=== PATIENT | female | born 1980 | race Caucasian/White ===

== ENCOUNTER 2019-02-20 22:50 | Emergency (ER) | payer OTHER ==
[2019-02-20 22:55] VITALS: BP 112/74; PULSE 68; TEMP 97.8; BMI 26.6
--- NOTE | 2019-02-21 00:24 | PDOC ---
History of Present Illness - General Chief Complaint: Pain Stated Complaint: PAIN Time Seen by Provider: 02/20/19 23:41 - History of Present Illness Initial Comments: 02/21/19 00:21 38F coming in with abdominal pain upon waking up from d&c procedure at 5pm. The apin was in the lower abdomen, without discharge. She say the pain is now completely resolved and feels completely back to normal. Patient eloped before complete examination could be performed. Past History - Past Medical History Allergies/Adverse Reactions: Allergies Allergy/AdvReac Type Severity Reaction Status Date / Time shellfish derived Allergy Intermediate Rash Verified 02/20/19 23:05 Home Medications: Ambulatory Orders No Home Medications 0 dose .ROUTE UTDICT 03/02/13 COPD: No HTN: Yes Psychiatric Problems: Yes (anxiety) - Reproductive History Is Patient Now?: No - Immunization History Immunization Up to Date: No - Psycho Social/Smoking Cessation Hx Smoking History: Never smoked Have you smoked in the past 12 months: Yes Number of Cigarettes Smoked Daily: 4 Hx Alcohol Use: No Review of Systems - Review of Systems Able to Perform ROS?: Yes Is the patient limited Montenegrin proficient: No Constitutional: No: Symptoms Reported HEENTM: No: Symptoms Reported Respiratory: No: Symptoms reported Cardiac (ROS): No: Symptoms Reported ABD/GI: No: Symptoms Reported : No: Symptoms Reported, Testicular Mass Integumentary: No: Symptoms Reported Neurological: No: Symptoms reported All Other Systems: Reviewed and Negative *Physical Exam - Vital Signs Last Vital Signs Temp Pulse Resp BP Pulse Ox 97.8 F 68 19 112/74 100 02/20/19 22:52 02/20/19 22:52 02/20/19 22:52 02/20/19 22:52 02/20/19 22:52 Medical Decision Making - Medical Decision Making 02/21/19 00:24 38F coming in with abdominal pain upon waking up from d&c procedure at 5pm. The apin was in the lower abdomen, without discharge. She say the pain is now completely resolved and feels completely back to normal. Patient eloped before complete examination could be performed. Discharge - Discharge Information Problems reviewed: Yes Clinical Impression/Diagnosis: Eloped from emergency department Disposition: ELOPED - Follow up/Referral - Patient Discharge Instructions - Post Discharge Activity
--- NOTE | 2019-02-21 00:24 | PDOC ---
Attending Attestation - Resident Resident Name: Ivan Day - ED Attending Attestation I have performed the following: I have examined & evaluated the patient, The case was reviewed & discussed with the resident, I agree w/resident's findings & plan, Exceptions are as noted - HPI HPI: 02/21/19 01:26 Ms. Gtz is a 38 yo F who presents to the emergency department with a complaint of abdominal pain Patient is status post D&C this afternoon Patient was seen by the resident only He apparently saw her left the room and was planning to return to the room to examine the patient When he returned to the room, the patient had already left I have not independently interviewed or examined this patient - Physicial Exam PE: 02/21/19 01:29 Physical examination could not be performed as patient has left the emergency department - Medical Decision Making 02/21/19 01:29 Patient presented to the ER with a complaint of abdominal pain, status post D&C earlier today Patient did not stay for complete evaluation in the emergency department and has eloped
== END 2019-02-21 00:21 | disposition left against medical advice (07) ==
LOC: JER 22:50
DX: R10.9 Unspecified abdominal pain (principal)
CPT/HCPCS: 99282-25

== ENCOUNTER 2020-01-03 10:10 | Inpatient (IN) | payer OTHER ==
[2020-01-03] MEDS ORDERED: OXYTOCIN 30 UNITS in 0.9% NS 30 UNIT/500 ML INFUS.BAG IVPB SCH (10:45)
--- NOTE | 2020-01-03 10:50 | HP ---
"Past Medical History - Admission History of Present Illness: 39 yo @ 38 1/7 wks by first trimester ultrasound, EDC 01/16/2020 complicated by: 1. cHTN - was on Bystolic, stopped, no meds early 24 H urine protein BPs wnl this 2. GDMA2 on NPH 20u Last EFW: AGA 3225g 68% 3. Obesity - 28 lb wt gain this early GCT 139 --> GTT 90 | 163 | 186* | 85 routine GTT 94 | 181* | 195* | 85 4. IVF 5. AMA - [id number] neg, 46 XY 6. Alpha Thal carrier, FOB not a carrier 7. GBS neg 8. Fibroid uterus Patient reports leakage of clear fluid ~ 0600 this AM. She reports movement denies contractions of bleeding. History Source: Patient Limitations to Obtaining History: No Limitations - Past Medical History Cardiovascular: Yes: HTN ...: 1 ...Para: 0 Heme/Onc: No: Anemia - Past Surgical History Past Surgical History: Yes: Cholecystectomy Hx Myomectomy: No Hx Transabdominal Cerclage: No Additional Surgical History: 02/18/2008 - L salpingoophorectomy for dermoid. 2018 IVF - Smoking History Smoking history: Never smoked Have you smoked in the past 12 months: Yes Aproximately how many cigarettes per day: 4 - Alcohol/Substance Use Hx Alcohol Use: No - Social History History of Recent Travel: No Home Medications - Allergies Allergies/Adverse Reactions: Allergies Allergy/AdvReac Type Severity Reaction Status Date / Time shellfish derived Allergy Intermediate Rash Verified 01/03/20 11:46 No Known Drug Allergies Allergy Verified 01/03/20 11:46 - Home Medications Home Medications: Ambulatory Orders Pnv No.95/Ferrous Fum/Folic AC [ Formula] 1 each PO DAILY 12/16/19 Aspirin [Adult Aspirin Regimen] 81 mg PO DAILY 01/03/20 Insulin Detemir [Levemir Flextouch] 20 unit [facility] 01/03/20 Family Medical History Family History: Denies Review of Systems - Review of Systems Constitutional: reports: No Symptoms Neck: reports: No Symptoms Cardiovascular: reports: No Symptoms Respiratory: reports: No Symptoms Gastrointestinal: reports: No Symptoms Musculoskeletal: reports: No Symptoms Endocrine: reports: No Symptoms Hematology/Lymphatic: reports: No Symptoms Physical Exam - Maternity Constitutional: Yes: Well Nourished, No Distress, Calm Cardiovascular: Yes: Regular Rate and Rhythm Lungs: Clear to auscultation - Abdominal Exam/OB Number of Fetuses: Single Presentation: Vertex Contractions: No Category: I - Labs Lab Results: PNL: B positive, antibody neg; RPR NR; HIV neg; HBs Ag neg; HCV neg; GBS neg Hemorrhage Risk Assessment - Risk Factors Medium Risk Factors: Yes: None High Risk Factors: Yes: None Risk Score: 1 (patient on ASA 81) Risk Level: Medium Risk Assessment/Plan: Hx/o ASA use for PEC prevention, will T&C 2 uPRBCs Assessment/Plan 39 yo @ 38 wks PROM 1. Admit to L&D 2. Routine labs ordered Covid test ordered 3. GBS neg 4. Plan for augmentation with pitocin 5. Will offer pain medication upon patient request 6. Will proceed with expectant management"
--- NOTE | 2020-01-03 11:22 | PN ---
Progress Note (short form) - Note Progress Note: First baby. PROM. Dr. Hill is considering Pitocin. Patient examined. Cervix is closed, effaced 50%. Vertex -1. heart category 1.
[2020-01-03 11:39] VITALS: BMI 32.8
[2020-01-03] MEDS: ELECTROLYTE-148 SOLN 1,000 ML IV SCH ×2 (11:40→16:00)
[2020-01-03 12:34] LABS: BASO % 0.5 % (0-2.0); EOS % 0.4 % (0-4.5); HEMATOCRIT 34.8 % (32.4-45.2); HEMOGLOBIN 11.2 GM/dL (10.7-15.3); LYMPH % 12.1 % (8-40); MCH 26.3 pg (25.7-33.7); MCHC 32.2 g/dl (32.0-36.0); MEAN CELL VOLUME 81.8 fl (80-96); MEAN PLT VOLUME 9.5 fl (7.5-11.1); MONO % 4.3 % (3.8-10.2); NEUT % 82.7 % (42.8-82.8); PLATELET COUNT 372 K/MM3 (134-434); RBC 4.25 M/mm3 (3.60-5.2); RDW 14.2 % (11.6-15.6); WHITE BLOOD COUNT 15.6 K/mm3 (4.0-10.0)
[2020-01-03 12:41] LABS: INR 0.94 (0.83-1.09); PROTHROMBIN TIME (PATIENT) 11.1 SEC (9.7-13.0)
[2020-01-03 12:44] LABS: ACTIVATED PTT 26.3 SECONDS (25.2-36.5)
[2020-01-03] MEDS ORDERED: BUTORPHANOL TARTRATE 1 MG/ML VIAL IVPUSH ONE (12:49)
[2020-01-03] MEDS ORDERED: PROMETHAZINE HCL 25 MG/1 ML VIAL IVPB ONE (12:49)
[2020-01-03 12:58] LABS: BLOOD UREA NITROGEN 6.6 mg/dL (7-18); CREATININE 0.7 mg/dL (0.55-1.3); POTASSIUM 4.3 mmol/L (3.5-5.1)
[2020-01-03] MEDS ORDERED: PROMETHAZINE HCL 25 MG/1 ML VIAL ONE (13:04)
[2020-01-03] MEDS ORDERED: BUTORPHANOL TARTRATE 2 MG/ML VIAL ONE (13:04)
[2020-01-03] MEDS ORDERED: PCA PUMP NR ONE ×2 (14:32→19:24)
[2020-01-03] MEDS ORDERED: FENTANYL/BUPIVACAINE/NS/PF - PCEA - 50 ML DISP.SYRIN EP ONE ×3 (14:32→22:02)
[2020-01-03] MEDS: FENTANYL/BUPIVACAINE/NS/PF - PCEA - 50 ML DISP.SYRIN EP SCH (15:50)
[2020-01-03] MEDS ORDERED: NALOXONE HCL 0.4 MG/ML VIAL IVPUSH PRN (17:01)
[2020-01-03] MEDS ORDERED: DEXTROSE 5%-LACTATED RINGERS 1,000 ML IV SCH (17:15)
[2020-01-03] MEDS ORDERED: BUPIVACAINE HCL/PF 0.25% (2.5MG/ML) 10 ML VIAL ONE ×2 (17:16→23:05)
--- NOTE | 2020-01-03 17:31 | PN ---
Progress Note, Labor Vaginal Exam #1 Labor Exam Date: 01/03/20 Labor Exam Time: 17:29 Heart Rate (range): 140 Dilatation: 2 Effacement (%): 100 Amniotic Membrane Status: Ruptured Presentation: Vertex/Position Station: -1 Remarks: 39 yo @ 38 wks PROM, induction of labor 1. currently on pitocin @ 4, cervix has started to thin and change noted Will continue pitocin per protocol 2. GBS neg 3. GDM on insulin - will continue to monitor FS Q4, will cover if needed 4. Pain well controlled with epidural 5. Will proceed with expectant management Vaginal Exam #2 Labor Exam Date: 01/04/20 Labor Exam Time: 00:26 Heart Rate (range): 180 Dilatation: 8 Effacement (%): 100 Amniotic Membrane Status: Ruptured Presentation: Vertex/Position Station: -1 Remarks: 39 yo @ 38+ wks, IOL PROM, active labor 1. Good cervical change, pitocin currently at 2 2. Category II FHT - tachycardia, good variability and accelerations noted Will change in maternal position and give O2 via facemask Currently afebrile, will monitor for signs of infection 3. s/p epidural bolus with good pain relief 4. FS currently 98, no coverage needed at this time 5. Will continue with expectant management Vaginal Exam #3 Labor Exam Date: 01/04/20 Labor Exam Time: 04:00 Heart Rate (range): 130 Dilatation: 10 Effacement (%): 100 Presentation: Vertex/Position Remarks: Patient pushing Fetus Category I FHT Will continue expectant management
[2020-01-03] MEDS ORDERED: ONDANSETRON 4 MG/2 ML VIAL ONE ×2 (20:01→23:09)
[2020-01-03] MEDS ORDERED: ONDANSETRON 4 MG/2 ML VIAL IVPB ONE ×2 (21:15→23:27)
[2020-01-03] MEDS ORDERED: LIDO 2%/EPI 1:200000 PRESRVFRE (20 ML SDVIAL) ONE (23:11)
[2020-01-03] MEDS ORDERED: ACETAMINOPHEN 1000 MG/100 ML VIAL (NON FORMULARY) IVPB ONE (23:26)
[2020-01-03] MEDS ORDERED: ACETAMINOPHEN INJECTION 100 ML IVPB ONE (23:43)
[2020-01-03] MEDS ORDERED: AMPICILLIN SODIUM 2 GM VIAL ONE (23:44)
[2020-01-04] MEDS ORDERED: AMPICILLIN - 2 GM in SODIUM CHLORIDE 100 ML IVPB ONE (00:31)
[2020-01-04] MEDS ORDERED: FENTANYL/BUPIVACAINE/NS/PF - PCEA - 50 ML DISP.SYRIN EP ONE (01:34)
[2020-01-04] MEDS ORDERED: LIDOCAINE HCL 1% PRESERVATIVE FREE - 30ML VIAL ONE (02:38)
[2020-01-04] MEDS ORDERED: OXYTOCIN 20 UNITS in 0.9% NS 20 UNIT/1,000 ML INFUS.BAG IV ONE (02:39)
[2020-01-04] MEDS: AMPICILLIN - 1 GM in SODIUM CHLORIDE 100 ML IVPB SCH (04:00)
[2020-01-04] MEDS ORDERED: LIDO 2%/EPI 1:200000 PRESRVFRE (20 ML SDVIAL) ONE (06:34)
[2020-01-04] MEDS ORDERED: CITRIC ACID/SODIUM CITRATE 30 ML UNIT-DOSE CUP PO ONE (06:37)
--- NOTE | 2020-01-04 06:37 | PN ---
Progress Note (short form) - Note Progress Note: Patient progressed to FD and pushing for approximately 3.5 hours with poor descent of head. Patient agrees to primary delivery. Discussed risks including but not limited to infection, bleeding requiring transfusion and damage to surrounding organs such as the bowel or bladder. Discussed risk of injury to infant. Discussed risk of wound infection and separation. Discussed need for planning of future children and possibility of abnormal placentation. All questions answered. Patient expressed understanding. Nursing staff noted, Anesthesia and Neonatology notified. Will proceed to OR
--- NOTE | 2020-01-04 08:33 | PN ---
Progress Note (short form) - Note Progress Note: I assisted Dr. Womack at c/section for the entirety of the case.
[2020-01-04 08:40] LABS: CORD BASE EXCESS -4.8 mmol/L (0-2); CORD HCO3 21.5 mmHg (20-29); CORD PCO2 44.3 mmHg (30-78); CORD pH 7.304 (7.14-7.44)
[2020-01-04 08:44] LABS: CORD HCO3 21.1 mmHg (20-29); CORD PCO2 52.5 mmHg (30-78); CORD pH 7.223 (7.14-7.44)
[2020-01-04] MEDS ORDERED: WITCH HAZEL 50% (TUCKS) 40 PAD/JAR PAD TP PRN (08:49)
[2020-01-04] MEDS ORDERED: oxyCODONE HCL 5 MG TABLET PO PRN (08:49)
[2020-01-04] MEDS ORDERED: SENNOSIDES/DOCUSATE COMBO (SENNA PLUS) TABLET (UD) PO PRN (08:49)
[2020-01-04] MEDS ORDERED: BENZOCAINE 20% 57 GM BOTTLE TP PRN (08:49)
[2020-01-04] MEDS ORDERED: METHYLERGONOVINE MALEATE 0.2 MG/1 ML AMP IM PRN (08:49)
[2020-01-04] MEDS ORDERED: BENZOCAINE 28 GM HEMORRHOIDAL OINTMENT TP PRN (08:49)
--- NOTE | 2020-01-04 08:58 | PN ---
"Delivery - Delivery Section: Primary Type of Anesthesia: Epidural Episiotomy/Laceration: None EBL (cc): 800 Delivery, Single - Stages of Labor Date 1st Stage Initiatied: 01/03/20 Time 1st Stage Initiated: 14:00 Date 2nd Stage Initiated: 01/04/20 Time 2nd Stage Initiated: 03:00 Date of Delivery: 01/04/20 Time of Delivery: 07:43 Time Placenta Delivered: 07:44 - Condition of Infant Ambulatory Services Representative/Public Health Nurse Present: Yes Name: Gurmeet Portillo Gender: Male Weight: 7 lb 10 oz Position: OP Total Hours ROM (Hrs/Mins): 25hrs/44mins - 1 Minute Total Score: 7 5 Minutes Total Score: 9 - Feeding Plan Initial Plan: Exclusive throughout hospitalization Remarks - Remarks Remarks: Surgeon: Dr. Hill | Assist: Dr. Maria | Anesthesia: Dr. Bourne Fluids: 500cc | UOP: 400cc | EBL: 800cc Findings: male infant, direct OP position, 7, 9 ; wt 7-10; normal apperaing right ovary and fallopian tube, absent L ovary and fallopian tube; multiple subserosal fibroids dictation: [id number]"
[2020-01-04] MEDS: OXYTOCIN 20 UNITS in 0.9% NS 20 UNIT/1,000 ML INFUS.BAG IV SCH (09:00)
[2020-01-04] MEDS ORDERED: ACETAMINOPHEN INJECTION 100 ML IVPB ONE (09:43)
[2020-01-04] MEDS ORDERED: ACETAMINOPHEN 1000 MG/100 ML VIAL (NON FORMULARY) IVPB ONE (09:44)
[2020-01-04] MEDS ORDERED: ONDANSETRON 4 MG/2 ML VIAL IVPUSH PRN (09:45)
[2020-01-04] MEDS: FERROUS SO4 325 MG TABLET (FP) PO SCH ×2 (10:12→23:04)
[2020-01-04] MEDS: PRENATAL VITAMINS W/ FOLIC ACID TABLET (FP) PO SCH (10:13)
[2020-01-04] MEDS: SIMETHICONE 80 MG TAB.CHEW (FP) PO PRN (23:04)
[2020-01-04] MEDS: IBUPROFEN 600 MG TABLET (FP) PO PRN (23:10)
[2020-01-04] MEDS ORDERED: diphenhydrAMINE HCL 25 MG CAPSULE (FP) PO PRN (23:34)
[2020-01-04] MEDS: ACETAMINOPHEN 325 MG TABLET (FP) PO PRN (23:58)
[2020-01-05] MEDS: IBUPROFEN 600 MG TABLET (FP) PO PRN ×3 (07:35→19:55)
[2020-01-05] MEDS: ACETAMINOPHEN 325 MG TABLET (FP) PO PRN (07:35)
[2020-01-05] MEDS ORDERED: BISACODYL 10 MG SUPP.RECT RC PRN (08:49)
--- NOTE | 2020-01-05 08:50 | PN ---
Post Progress Note - Subjective Subjective: Patient without acute complaints. Temperature elevation last night, no chills No additional temperature elevations Tolerating clears, without complaints of nausea or vomiting. No ambulation yet. without difficulty Pain well controlled Garcia removed this AM, voiding Denies flatus. Type of Delivery: Primary C/S Vital Signs: Vital Signs Temperature 98.2 F 01/05/20 06:09 Pulse Rate 91 H 01/05/20 06:09 Respiratory Rate 20 01/05/20 07:00 Blood Pressure 110/79 01/05/20 06:09 O2 Sat by Pulse Oximetry (%) 98 01/04/20 21:16 Breast Exam: Yes: Soft Uterus: Yes: Fundus Firm, Fundus below umbilicus Incision: Yes: Dressing dry and intact Abdomen/GI: Yes: Abdomen soft, Tender (incisional), Tolerating PO. No: Abdominal Distention Extremities: Yes: Calves non-tender, Edema (trace) - Labs Labs: CBC WBC 15.6 K/mm3 (4.0-10.0) H 01/03/20 11:52 RBC 4.25 M/mm3 (3.60-5.2) 01/03/20 11:52 Hgb 11.2 GM/dL (10.7-15.3) 01/03/20 11:52 Hct 34.8 % (32.4-45.2) D 01/03/20 11:52 MCV 81.8 fl (80-96) 01/03/20 11:52 MCH 26.3 pg (25.7-33.7) 01/03/20 11:52 MCHC 32.2 g/dl (32.0-36.0) 01/03/20 11:52 RDW 14.2 % (11.6-15.6) 01/03/20 11:52 Plt Count 372 K/MM3 (134-434) 01/03/20 11:52 MPV 9.5 fl (7.5-11.1) 01/03/20 11:52 Absolute Neuts (auto) 12.9 K/mm3 (1.5-8.0) H 01/03/20 11:52 Neutrophils % 82.7 % (42.8-82.8) 01/03/20 11:52 Lymphocytes % 12.1 % (8-40) 01/03/20 11:52 Monocytes % 4.3 % (3.8-10.2) 01/03/20 11:52 Eosinophils % 0.4 % (0-4.5) 01/03/20 11:52 Basophils % 0.5 % (0-2.0) 01/03/20 11:52 Nucleated RBC % 0 % (0-0) 01/03/20 11:52 Assessment/Plan 39 yo POD # 1 s/p primary CD, T elevation last night now afebrile, vital signs stable, doing well 1. Continue routine postoperative care. Will monitor for signs of endometritis 2. Follow up AM CBC 3. Rh positive status, no rhogam indicated. 4. Encourage ambulation and incentive spirometer use 5. Continue oral pain medication 6. Anticipate discharge home postoperative day #3 or #4
--- NOTE | 2020-01-05 09:15 | PN ---
Progress Note (short form) - Note Progress Note: Anesthesia/pain Pt seen and examined S:Alert and awake comfortable O; Vital Signs Temperature 98.2 F 01/05/20 06:09 Pulse Rate 91 H 01/05/20 06:09 Respiratory Rate 01/05/20 07:00 Blood Pressure 110/79 01/05/20 06:09 O2 Sat by Pulse Oximetry (%) 98 01/04/20 21:16 CBC, BMP 01/03/20 11:52 01/03/20 11:52 A/P:s/p c section Doing well post op Continue current care Shawn Grimaldo MD
[2020-01-05 10:02] LABS: BASO % 0.4 % (0-2.0); EOS % 0.1 % (0-4.5); HEMATOCRIT 29.9 % (32.4-45.2); HEMOGLOBIN 9.8 GM/dL (10.7-15.3); LYMPH % 3.4 % (8-40); MCH 26.8 pg (25.7-33.7); MCHC 32.8 g/dl (32.0-36.0); MEAN CELL VOLUME 81.6 fl (80-96); MEAN PLT VOLUME 9.7 fl (7.5-11.1); MONO % 3.6 % (3.8-10.2); NEUT % 92.5 % (42.8-82.8); PLATELET COUNT 342 K/MM3 (134-434); RBC 3.67 M/mm3 (3.60-5.2); RDW 14.6 % (11.6-15.6); WHITE BLOOD COUNT 21.8 K/mm3 (4.0-10.0)
--- NOTE | 2020-01-05 10:36 | OP ---
DATE OF OPERATION: 01/04/2020 PREOPERATIVE DIAGNOSIS: Intrauterine at 38 weeks, induction of labor for premature rupture of membranes, direct occiput posterior position, failure to progress, gestational diabetic and chronic hypertension. SURGEON: Ricarda Hill MD INDICATIONS: Patient is a 39-year-old 1, para 0 who is admitted for premature rupture of membranes. She was given Pitocin, progressed to fully dilated. After pushing for approximately 3-1/2 hours with poor descent of head she opted for delivery. Risks, benefits, alternatives and complications were discussed including infection, bleeding, damage to surrounding organs and injury to . She expressed understanding and was brought to the operating room. PROCEDURE: When anesthesia was found to be adequate patient was prepped and draped in normal sterile fashion, placed in the dorsal supine position with leftward tilt. Approximately 11 cm skin incision was made with a knife and carried down to the underlying rectus fascia using Bovie electrocautery. Fascia was nicked in the midline, extended laterally using Kim scissors. Rectus muscles were in the midline. Peritoneum was entered sharply, extended superior and inferior using Metzenbaum scissors. Examination of the uterine cavity revealed a subserosal fibroid in the anterior lower uterine segment. The vesicouterine peritoneum was entered below the fibroid and extended laterally using Metzenbaum scissors. The uterine incision was made with a knife and extended laterally using the bandage scissors. was found to be deep in the pelvis, direct OP position, brought to the hysterotomy site and delivered followed by shoulders and body. Cord was clamped and cut. Cord blood with cord gases was collected and sent. Infant was handed to waiting NICU staff. The placenta was manually extracted. The uterus was cleared of all clot and debris. An examination of hysterotomy revealed a right hysterotomy extension down towards the vagina which was repaired using 0 Biosyn in running fashion. The hysterotomy was then repaired with 0 Biosyn in a running fashion with second layer as imbricated layer. The gutters were cleared of all clot and debris. Examination of the adnexa revealed a normal-appearing right fallopian tube and ovary and absent left fallopian tube and ovary. Copious irrigation was performed and the uterus was returned to the abdominal cavity. Examination of the hysterotomy site was found to be hemostatic and a piece of Surgicel was placed on the right aspect of the incision. The peritoneum was closed using 2-0 Biosyn in a running fashion. The muscle was reapproximated using 0 Biosyn in interrupted fashion. Fascia was closed using 0 Vicryl in a running fashion. Subcutaneous fat was closed using 2-0 Biosyn in a running fashion. The skin was reapproximated using 3-0 Vicryl. Patient tolerated the procedure well. Estimated blood loss was 800 mL. Patient was brought to recovery room in stable condition. David [id number] MTDD
[2020-01-05] MEDS: FERROUS SO4 325 MG TABLET (FP) PO SCH ×2 (10:44→21:03)
[2020-01-05] MEDS: PRENATAL VITAMINS W/ FOLIC ACID TABLET (FP) PO SCH (10:44)
[2020-01-05 12:16] LABS: ANISOCYTOSIS 1+; MACROCYTOSIS 0; PLATELET ESTIMATE NORMAL
[2020-01-05] MEDS: oxyCODONE HCL 5 MG TABLET PO PRN ×2 (14:17→19:55)
[2020-01-05] MEDS: SIMETHICONE 80 MG TAB.CHEW (FP) PO PRN (19:55)
[2020-01-06] MEDS: oxyCODONE HCL 5 MG TABLET PO PRN ×3 (01:50→19:51)
[2020-01-06] MEDS: SIMETHICONE 80 MG TAB.CHEW (FP) PO PRN ×4 (01:50→17:17)
[2020-01-06] MEDS: IBUPROFEN 600 MG TABLET (FP) PO PRN ×4 (01:51→17:17)
[2020-01-06] MEDS: ACETAMINOPHEN 325 MG TABLET (FP) PO PRN ×2 (06:23→17:17)
--- NOTE | 2020-01-06 07:41 | PN ---
Progress Note (short form) - Note Progress Note: pod2 no c/o, ambulating , passing gas , no excess vaginal bleeding CBC, BMP 01/05/20 09:03 01/03/20 11:52 Last Vital Signs Temp Pulse Resp BP Pulse Ox 98.8 F 105 H 18 145/75 99 01/05/20 22:00 01/05/20 22:00 01/05/20 22:00 01/05/20 22:00 01/05/20 22:00 abdomen soft, no distension , no cva , BS are present, uterus firm incision dry, clean no calf tenderness plan ambulate , advance diet cbc in am
[2020-01-06] MEDS: OXYTOCIN 20 UNITS in 0.9% NS 20 UNIT/1,000 ML INFUS.BAG IV SCH (09:31)
[2020-01-06] MEDS: PRENATAL VITAMINS W/ FOLIC ACID TABLET (FP) PO SCH (09:34)
[2020-01-06] MEDS: FERROUS SO4 325 MG TABLET (FP) PO SCH ×2 (09:34→21:59)
--- NOTE | 2020-01-06 19:41 | DS ---
Physical Exam-DIRECTOR PROSPECT Vital Signs: Vital Signs Temperature 98.7 F 01/06/20 10:00 Pulse Rate 90 01/06/20 10:00 Respiratory Rate 18 01/06/20 10:00 Blood Pressure 130/84 01/06/20 10:00 O2 Sat by Pulse Oximetry (%) 99 01/05/20 22:00 Constitutional: Yes: Well Nourished, No Distress, Calm Eyes: Yes: WNL, Conjunctiva Clear, EOM Intact HENT: Yes: WNL, Atraumatic, Normocephalic Neck: Yes: WNL, Supple, Trachea Midline Cardiovascular: Yes: WNL, Regular Rate and Rhythm Respiratory: Yes: WNL, Regular, CTA Bilaterally Gastrointestinal: Yes: WNL, Normal Bowel Sounds, Soft ...Rectal Exam: Yes: Deferred Renal/: Yes: WNL Internal Exam Deferred: Yes ....Post : Yes: Uterus firm, Uterus non-tender, Slight lochia rubra Breast(s): Yes: WNL Musculoskeletal: Yes: WNL Extremities: Yes: WNL Edema: Yes Edema: LLE: 1+, RLE: 1+ Integumentary: Yes: WNL Wound/Incision: Yes: Clean/Dry, Well Approximated, Sutures Intact, Open to air Neurological: Yes: WNL, Alert, Oriented ...Motor Strength: WNL Psychiatric: Yes: WNL, Alert, Oriented Labs: CBC, BMP 01/05/20 09:03 01/03/20 11:52 Delivery - Delivery Section: Primary, Low Flap Transverse Type of Anesthesia: Epidural Episiotomy/Laceration: None EBL (cc): 800 Delivery, Single - Stages of Labor Date 1st Stage Initiatied: 01/03/20 Time 1st Stage Initiated: 14:00 Date 2nd Stage Initiated: 01/04/20 Time 2nd Stage Initiated: 03:00 Date of Delivery: 01/04/20 Time of Delivery: 07:43 Time Placenta Delivered: 07:44 Placenta: Yes: Expressed, Manual Removal, Normal Configuration - Condition of Activities Director Scouting/Senior Quantity Surveyor Present: Yes Name: Gurmeet Portillo Gender: Male Weight: 3.459 kg Position: OP Total Hours ROM (Hrs/Mins): 25hrs/44mins - 1 Minute Total Score: 7 5 Minutes Total Score: 9 - [place] Feeding Plan Initial Plan: Exclusive throughout hospitalization Benefits of Exclusively reinforced: Yes Discharge Summary Problems reviewed: Yes Reason For Visit: spontaneous rupture of membranes, early labor Arrest of descent, PROM, GDM, chronic HTN, fibroid uterus Procedures: Principal: Primary LT C/S Hospital Course: Normal postop course, normal recovery Health Concerns: chronic HTN, GDM, fibroid uterus, anemia Plan of Treatment: Postop recovery, ambulation, pain management, breast feeding Goals: Postop recovery, ambulation, pain management, breast feeding, continue vitamins Condition: Good - Instructions Diet, Activity, Other Instructions: Physical activity Resume your normal everyday activity as tolerated no heavy lifting or exercise until seen by your surgeon. You may walk unlimited mary of and climb stairs. You may resume driving the car when you feel safe and comfortable behind the wheel. No sexual activity as instructed. Wound care If you have a bandage, leave it on, and keep dry for 48-72 hours. After that time discard the outer bandage. If they are tapes on the skin under the out of bandage leave them in place. They will peel off in the next 7 to 10 days. Do Not Peel them off. You may shower the day after surgery. If there are tapes present on the skin, you may shower over them. Diet There are no dietary restrictions. Eat healthy, high-fiber foods. Drink 6 to 8 glasses of liquid each day. This will assist in keeping your bowels are regular. Pain management You may take Tylenol or acetaminophen or Ibuprofen (for example, Motrin, Advil etc.) from my pain prescription medication is ordered should be taken as pre scribed for moderate to severe pain. Call MD for any of the following: Severe pain not relieved by medication Fever of 101 or higher Excessive bleeding or drainage on dressing Inability to urinate Referrals: Devante Vera MD [Staff Physician] - Disposition: HOME - Home Medications Comprehensive Discharge Medication List: Ambulatory Orders Pnv No.95/Ferrous Fum/Folic AC [ Formula] 1 each PO DAILY 12/16/19 Aspirin [Adult Aspirin Regimen] 81 mg PO DAILY 01/03/20 Insulin Detemir [Levemir Flextouch] 20 unit [facility] 01/03/20 Prescription Drug Monitoring Program (I-STOP) results: I-STOP not reviewed
[2020-01-06] MEDS: FENTANYL/BUPIVACAINE/NS/PF - PCEA - 50 ML DISP.SYRIN EP SCH ×2 (19:57→21:08)
[2020-01-06] MEDS: AMPICILLIN - 1 GM in SODIUM CHLORIDE 100 ML IVPB SCH ×2 (21:10→21:11)
[2020-01-07] MEDS: oxyCODONE HCL 5 MG TABLET PO PRN (02:02)
[2020-01-07] MEDS: IBUPROFEN 600 MG TABLET (FP) PO PRN (02:02)
[2020-01-07] MEDS: SIMETHICONE 80 MG TAB.CHEW (FP) PO PRN ×2 (02:02→05:09)
[2020-01-07] MEDS: ACETAMINOPHEN 325 MG TABLET (FP) PO PRN (05:09)
[2020-01-07 08:20] LABS: BASO % 0.5 % (0-2.0); EOS % 1.6 % (0-4.5); HEMATOCRIT 27.7 % (32.4-45.2); HEMOGLOBIN 9.1 GM/dL (10.7-15.3); LYMPH % 22.5 % (8-40); MCH 26.8 pg (25.7-33.7); MCHC 32.8 g/dl (32.0-36.0); MEAN CELL VOLUME 81.9 fl (80-96); MEAN PLT VOLUME 9.1 fl (7.5-11.1); NEUT % 66.4 % (42.8-82.8); PLATELET COUNT 369 K/MM3 (134-434); RBC 3.38 M/mm3 (3.60-5.2); RDW 14.6 % (11.6-15.6); WHITE BLOOD COUNT 10.1 K/mm3 (4.0-10.0)
--- NOTE | 2020-01-07 09:07 | PN ---
Post Progress Note - Subjective Subjective: Patient without acute complaints. Reports tolerating oral intake without nausea or vomiting. Ambulating without dizziness. Denies fevers or chills. Pain well controlled with oral pain medication. Pumping/breast feeding without issue. Post Day: 3 Type of Delivery: Primary C/S Vital Signs: Vital Signs Temperature 97.9 F 01/06/20 22:00 Pulse Rate 80 01/07/20 06:00 Respiratory Rate 18 01/07/20 06:00 Blood Pressure 119/86 01/07/20 06:00 O2 Sat by Pulse Oximetry (%) 99 01/05/20 22:00 Breast Exam: Yes: Soft Uterus: Yes: Fundus Firm, Fundus below umbilicus, Non-tender Incision: Yes: Sutures intact Abdomen/GI: Yes: Abdomen soft, Passing flatus, Tolerating PO Lochia: Yes: Rubra Lochia, amount: Small Extremities: Yes: Calves non-tender Perineum: Yes: Intact Activity: Ambulating - Labs Labs: CBC WBC 10.1 K/mm3 (4.0-10.0) H 01/07/20 07:28 RBC 3.38 M/mm3 (3.60-5.2) L 01/07/20 07:28 Hgb 9.1 GM/dL (10.7-15.3) L 01/07/20 07:28 Hct 27.7 % (32.4-45.2) L 01/07/20 07:28 MCV 81.9 fl (80-96) 01/07/20 07:28 MCH 26.8 pg (25.7-33.7) 01/07/20 07:28 MCHC 32.8 g/dl (32.0-36.0) 01/07/20 07:28 RDW 14.6 % (11.6-15.6) 01/07/20 07:28 Plt Count 369 K/MM3 (134-434) 01/07/20 07:28 MPV 9.1 fl (7.5-11.1) 01/07/20 07:28 Absolute Neuts (auto) 6.7 K/mm3 (1.5-8.0) 01/07/20 07:28 Neutrophils % 66.4 % (42.8-82.8) D 01/07/20 07:28 Neutrophils % (Manual) 89.8 % (42.8-82.8) H 01/05/20 09:03 Band Neutrophils % 1.0 % 01/05/20 09:03 Lymphocytes % 22.5 % (8-40) D 01/07/20 07:28 Lymphocytes % (Manual) 6.1 % (8-40) L 01/05/20 09:03 Monocytes % 9.0 % (3.8-10.2) D 01/07/20 07:28 Monocytes % (Manual) 2 % (3.8-10.2) L 01/05/20 09:03 Eosinophils % 1.6 % (0-4.5) D 01/07/20 07:28 Eosinophils % (Manual) 1.0 % (0-4.5) 01/05/20 09:03 Basophils % 0.5 % (0-2.0) 01/07/20 07:28 Basophils % (Manual) 0.0 % (0-2.0) 01/05/20 09:03 Myelocytes % (Man) 0 % (0-2) 01/05/20 09:03 Promyelocytes % (Man) 0 % (0-2) 01/05/20 09:03 Blast Cells % (Manual) 0 % (0-0) 01/05/20 09:03 Nucleated RBC % 0 % (0-0) 01/07/20 07:28 Metamyelocytes 0 % (0-2) 01/05/20 09:03 Hypochromia 0 01/05/20 09:03 Platelet Estimate Normal 01/05/20 09:03 Platelet Comment Present 01/05/20 09:03 Polychromasia 1+ 01/05/20 09:03 Poikilocytosis 1+ 01/05/20 09:03 Anisocytosis 1+ 01/05/20 09:03 Microcytosis 1+ 01/05/20 09:03 Macrocytosis 0 01/05/20 09:03 Spherocytes 1+ 01/05/20 09:03 Ivanna Cells 1+ 01/05/20 09:03 Assessment/Plan 39 y.o. female s/p primary LT C/S, doing well stable, afebrile. The pt is asymptomatic for s/sxs of anemia. BP are within normal limits. care instructions reviewed. Postoperative care and instructions reviewed. Continue routine postop care. Ambulation encouraged.
[2020-01-07 09:12] VITALS: BP 134/83; PULSE 79; TEMP 98.1
[2020-01-07] MEDS: FERROUS SO4 325 MG TABLET (FP) PO SCH (09:59)
[2020-01-07] MEDS: PRENATAL VITAMINS W/ FOLIC ACID TABLET (FP) PO SCH (09:59)
--- NOTE | 2020-01-09 15:56 | PATH ---
Surgical Pathology Report Patient Name: ANGEL KEMP Med. Rec. 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 Electronically Signed Rekha Mccullough M.D. Gross Description The specimen is received fresh labeled placenta and is a 537 gram, 24.5 x 11.5 x 2.3 cm. placenta with attached membranes and umbilical cord. The attached membranes are carmona, translucent with focal opacities and insert marginally. The umbilical cord measures 13.5 cm. in length and averages 1.3 cm. in diameter. The cord inserts marginally. No true knots or strictures are identified. Cut surface of the umbilical cord reveals 3 vessels. The surface is quach-blue with minimal fibrin deposition and appropriate caliber vessels. The maternal surface is red-brown with focal defects. Sectioning reveals red-brown, spongy parenchyma. No lesions are identified. [employer] sections are submitted in three cassettes as follows: 1- membrane rolls and umbilical cord; 2-3- full thickness sections of placenta. 01/08/2020 saudi01/08/2020
== END 2020-01-07 13:05 | disposition home or self-care (01) | DRG 787 ==
LOC: JDEL 10:10 → JLDR 10:45 → J3W 01-04 11:30
PROVIDERS: ADMIT Obstetrics & Gynecology; ATTEND Obstetrics & Gynecology
PROC: 10D00Z1 Extraction of Products of Conception, Low, Open Approach (ICD-10-PCS; principal; 2020-01-04)
DX: O62.1 Secondary uterine inertia (principal); O10.92 Unspecified pre-existing hypertension complicating childbirth; O42.92 Full-term premature rupture of membranes, unspecified as to length of time between rupture and onset of labor; O99.214 Obesity complicating childbirth; O99.02 Anemia complicating childbirth; D64.9 Anemia, unspecified; O34.13 Maternal care for benign tumor of corpus uteri, third trimester; D25.9 Leiomyoma of uterus, unspecified; O24.429 Gestational diabetes mellitus in childbirth, unspecified control; Z3A.38 38 weeks gestation of pregnancy; Z37.0 Single live birth
CPT/HCPCS: 36415; 36600; 80048; 82803; 82962; 85025; 85610; 85730; 86780; 86850; 86900; 86901; 86922; 87389; 88307-TC; J0131; U0003

== ENCOUNTER 2023-04-20 11:25 | Inpatient (IN) | payer OTHER ==
[2023-04-20] MEDS ORDERED: ELECTROLYTE-148 SOLN 1,000 ML IV SCH (12:00)
[2023-04-20 12:38] VITALS: BMI 31.4
[2023-04-20] MEDS ORDERED: BETAMET ACET/BETAMET NA PH 30 MG/5 ML VIAL ONE (13:44)
[2023-04-20 13:52] LABS: EPI CELLS 22 /uL (0-25.1); HYALINE CASTS 1 /uL (0-3.1); URINE APPEARANCE CLEAR; URINE BACTERIA 8 /uL (0-1359); URINE BILIRUBIN NEGATIVE (NEGATIVE); URINE COLOR YELLOW; URINE GLUCOSE (UA) NEGATIVE (NEGATIVE); URINE KETONE NEGATIVE (NEGATIVE); URINE LEUK ESTERASE NEGATIVE (NEGATIVE); URINE NITRITE NEGATIVE (NEGATIVE); URINE PROTEIN NEGATIVE (NEGATIVE); URINE RBC 1356 /uL (0-23.9); URINE UROBILINOGEN 0.2 mg/dL (0.2-1.0); URINE WBC 12 /uL (0-25.8)
[2023-04-20 13:52] LABS: BASO % 0.1 % (0-2.0); EOS % 0.9 % (0-4.5); HEMATOCRIT 37.4 % (32.4-45.2); HEMOGLOBIN 12.2 GM/dL (10.7-15.3); LYMPH % 11.3 % (8-40); MCH 27.1 pg (25.7-33.7); MCHC 32.6 g/dl (32.0-36.0); MEAN PLT VOLUME 8.9 fl (7.5-11.1); MONO % 4.8 % (3.8-10.2); NEUT % 82.9 % (42.8-82.8); PLATELET COUNT 366 10^3/uL (134-434); RBC 4.51 M/mm3 (3.60-5.2); RDW 13.7 % (11.6-15.6); WHITE BLOOD COUNT 14.9 K/mm3 (4.0-10.0)
[2023-04-20] MEDS ORDERED: BETAMET ACET/BETAMET NA PH 30 MG/5 ML VIAL IM ONE (14:00)
[2023-04-20 14:07] LABS: INR 0.99 (0.83-1.09); PROTHROMBIN TIME (PATIENT) 11.5 SEC (9.7-13.0)
[2023-04-20 14:19] LABS: POTASSIUM 4.3 mmol/L (3.5-5.1)
[2023-04-20 14:20] LABS: CALCIUM 9.1 mg/dL (8.5-10.1)
[2023-04-20 14:21] LABS: BLOOD UREA NITROGEN 7.4 mg/dL (7-18)
[2023-04-20 14:25] LABS: CREATININE 0.6 mg/dL (0.55-1.3)
[2023-04-20 17:01] LABS: SYPHILIS W/ RPR CONF NON-REACTIVE (NONREACTIVE)
[2023-04-20] MEDS ORDERED: CITRIC ACID/SODIUM CITRATE 30 ML UNIT-DOSE CUP PO ONE (17:22)
[2023-04-20 17:30] LABS: HIV INTERPRETATION NEGATIVE (NEGATIVE)
[2023-04-20] MEDS ORDERED: PHENYLEPHRINE HCL 10 MG/1 ML SINGLE DOSE VIAL ONE (18:19)
[2023-04-20] MEDS ORDERED: ONDANSETRON 4 MG/2 ML VIAL ONE (18:19)
[2023-04-20] MEDS ORDERED: SODIUM CHLORIDE 0.9% P/F 10 ML VIAL IJ ONE (18:19)
[2023-04-20] MEDS ORDERED: ceFAZolin SODIUM 1 GM VIAL ONE (18:19)
[2023-04-20] MEDS ORDERED: morphine SULFATE/PF 1 MG/2 ML (2cc Syringe - QUVA) ONE (18:19)
[2023-04-20] MEDS ORDERED: ePHEDrine SULFATE 50 MG/1 ML AMPULE ONE (18:21)
[2023-04-20] MEDS ORDERED: FENTANYL CITRATE/PF 50 MCG/ML VIAL ONE (18:21)
[2023-04-20] MEDS ORDERED: SUCCINYLCHOLINE CHLORIDE 200 MG/10 ML SYRINGE ONE (18:22)
[2023-04-20] MEDS ORDERED: PROPOFOL 20 ML ONE (18:22)
[2023-04-20] MEDS ORDERED: OXYTOCIN 30 UNITS in 0.9% NS 30 UNIT/500 ML INFUS.BAG IVPB ONE (18:54)
[2023-04-20] MEDS ORDERED: MIDAZOLAM HCL 2 MG/2 ML SINGLE DOSE VIAL ONE (20:30)
[2023-04-20] MEDS ORDERED: KETOROLAC TROMETHAMINE 30 MG/1 ML VIAL ONE (20:33)
[2023-04-20 20:34] LABS: CORD BASE EXCESS -2.8 mmol/L (0-2); CORD HCO3 22.6 mmHg (20-29); CORD HCO3 22.7 mmHg (20-29); CORD PCO2 42.2 mmHg (30-78); CORD PCO2 47.4 mmHg (30-78); CORD pH 7.297 (7.14-7.44); CORD pH 7.349 (7.14-7.44)
[2023-04-20] MEDS ORDERED: METHYLERGONOVINE MALEATE 0.2 MG/1 ML AMP IM PRN (20:46)
[2023-04-20] MEDS ORDERED: ONDANSETRON 4 MG/2 ML VIAL IVPUSH PRN (20:57)
[2023-04-20] MEDS ORDERED: morphine SULFATE/PF 1 MG/2 ML (2cc Syringe - QUVA) IT ONE (20:57)
[2023-04-20] MEDS ORDERED: ACETAMINOPHEN 1000 MG/100 ML BAG IVPB PRN (20:58)
[2023-04-20] MEDS: OXYTOCIN 20 UNITS in 0.9% NS 20 UNIT/1,000 ML INFUS.BAG IV SCH (21:00)
[2023-04-20] MEDS ORDERED: ACETAMINOPHEN INJECTION 100 ML IVPB ONE (22:12)
[2023-04-21] MEDS: CEFAZOLIN SODIUM 2 GM VIAL IVPB SCH ×3 (01:55→17:57)
[2023-04-21] MEDS: IBUPROFEN 800 MG/8 ML IJ IVPB PRN (05:25)
[2023-04-21] MEDS: OXYTOCIN 20 UNITS in 0.9% NS 20 UNIT/1,000 ML INFUS.BAG IV SCH (06:29)
[2023-04-21 09:57] LABS: HEMATOCRIT 31.1 % (32.4-45.2); HEMOGLOBIN 10.2 GM/dL (10.7-15.3); MCH 27.3 pg (25.7-33.7); MCHC 32.8 g/dl (32.0-36.0); MEAN CELL VOLUME 83.1 fl (80-96); MEAN PLT VOLUME 9.2 fl (7.5-11.1); PLATELET COUNT 332 10^3/uL (134-434); RBC 3.74 M/mm3 (3.60-5.2); RDW 13.8 % (11.6-15.6); WHITE BLOOD COUNT 25.3 K/mm3 (4.0-10.0)
[2023-04-21] MEDS: LABETALOL HCL 200 MG TABLET (FP) PO SCH ×2 (09:57→21:54)
[2023-04-21] MEDS: ENOXAPARIN NA (PORCINE) 40 MG/0.4 ML DISP.SYRIN SQ SCH (09:58)
[2023-04-21 10:50] LABS: ANISOCYTOSIS 3+; MACROCYTOSIS 0
[2023-04-21] MEDS: IBUPROFEN 600 MG TABLET (FP) PO PRN (12:02)
[2023-04-21] MEDS ORDERED: BISACODYL 10 MG SUPP.RECT RC PRN (20:46)
[2023-04-21] MEDS: oxyCODONE HCL 5 MG TABLET PO PRN (21:54)
[2023-04-21] MEDS: SIMETHICONE 80 MG TAB.CHEW (FP) PO PRN (21:54)
[2023-04-22] MEDS: ACETAMINOPHEN 325 MG TABLET (FP) PO PRN ×2 (00:17→07:53)
[2023-04-22] MEDS: SIMETHICONE 80 MG TAB.CHEW (FP) PO PRN ×3 (02:11→19:14)
[2023-04-22] MEDS: oxyCODONE HCL 5 MG TABLET PO PRN ×4 (02:11→22:35)
[2023-04-22] MEDS: IBUPROFEN 600 MG TABLET (FP) PO PRN (06:02)
[2023-04-22] MEDS: IBUPROFEN 800 MG/8 ML IJ IVPB PRN ×2 (08:15→16:19)
[2023-04-22] MEDS: LABETALOL HCL 200 MG TABLET (FP) PO SCH ×2 (10:08→22:35)
[2023-04-22] MEDS: ENOXAPARIN NA (PORCINE) 40 MG/0.4 ML DISP.SYRIN SQ SCH (10:09)
[2023-04-23] MEDS: IBUPROFEN 800 MG/8 ML IJ IVPB PRN ×2 (00:36→11:54)
[2023-04-23] MEDS: oxyCODONE HCL 5 MG TABLET PO PRN ×4 (06:20→22:14)
[2023-04-23] MEDS: SIMETHICONE 80 MG TAB.CHEW (FP) PO PRN ×2 (06:20→20:31)
[2023-04-23 08:52] LABS: BASO % 0.7 % (0-2.0); HEMATOCRIT 29.1 % (32.4-45.2); HEMOGLOBIN 9.7 GM/dL (10.7-15.3); LYMPH % 21.4 % (8-40); MCHC 33.3 g/dl (32.0-36.0); MEAN CELL VOLUME 84.1 fl (80-96); MEAN PLT VOLUME 8.8 fl (7.5-11.1); MONO % 5.9 % (3.8-10.2); PLATELET COUNT 327 10^3/uL (134-434); RBC 3.46 M/mm3 (3.60-5.2); RDW 13.9 % (11.6-15.6); WHITE BLOOD COUNT 15.8 K/mm3 (4.0-10.0)
[2023-04-23] MEDS: LABETALOL HCL 200 MG TABLET (FP) PO SCH ×2 (10:07→22:14)
[2023-04-23] MEDS: ENOXAPARIN NA (PORCINE) 40 MG/0.4 ML DISP.SYRIN SQ SCH (10:08)
[2023-04-23] MEDS: IBUPROFEN 600 MG TABLET (FP) PO PRN (20:31)
[2023-04-24] MEDS: SIMETHICONE 80 MG TAB.CHEW (FP) PO PRN ×2 (04:09→07:08)
[2023-04-24] MEDS: IBUPROFEN 800 MG/8 ML IJ IVPB PRN (04:09)
[2023-04-24] MEDS: oxyCODONE HCL 5 MG TABLET PO PRN (07:10)
[2023-04-24] MEDS: IBUPROFEN 600 MG TABLET (FP) PO PRN (09:57)
[2023-04-24] MEDS: LABETALOL HCL 200 MG TABLET (FP) PO SCH (09:57)
[2023-04-24] MEDS: ENOXAPARIN NA (PORCINE) 40 MG/0.4 ML DISP.SYRIN SQ SCH (10:01)
[2023-04-24 10:22] VITALS: BP 136/84; PULSE 73; RESP 16; TEMP 99.3
[2023-04-24] MEDS ORDERED: oxyCODONE HCL 5 MG TABLET PO PRN (12:22)
[2023-04-24] MEDS: ACETAMINOPHEN 325 MG TABLET (FP) PO PRN (12:26)
== END 2023-04-24 16:10 | disposition home or self-care (01) | DRG 786 ==
LOC: JDEL 11:25 → JLDR 11:35 → J3W 04-21
PROVIDERS: ADMIT Obstetrics & Gynecology; ATTEND Obstetrics & Gynecology
PROC: 10D00Z1 Extraction of Products of Conception, Low, Open Approach (ICD-10-PCS; principal; 2023-04-20)
PROC: 0UB90ZZ Excision of Uterus, Open Approach (ICD-10-PCS; 2023-04-20)
DX: O34.211 Maternal care for low transverse scar from previous cesarean delivery (principal); O44.13 Complete placenta previa with hemorrhage, third trimester; O16.4 Unspecified maternal hypertension, complicating childbirth; O34.13 Maternal care for benign tumor of corpus uteri, third trimester; D25.9 Leiomyoma of uterus, unspecified; O32.1XX0 Maternal care for breech presentation, not applicable or unspecified; Z3A.33 33 weeks gestation of pregnancy; Z37.0 Single live birth
CPT/HCPCS: 36415; 36430; 36600; 80048; 81003; 82803; 85025; 85384; 85610; 85730; 86780; 86850; 86900; 86901; 86922; 87086; 87389; 88305-TC; 88307-TC; 96372